=== PATIENT | male | born 1960 | race Caucasian/White ===

== ENCOUNTER 2016-10-16 18:27 | Emergency (ER) | payer OTHER ==
[~2016-10-16] VITALS: Ht 172.7 cm; Wt 113.6 kg
[~2016-10-16 18:27] MED LIST: AMOXICILLIN/CLA1 TA1 PO; CIPRO 500MG TA500 MG PO; IBU600 MG PO; LORTAB 5/500 501 TAB; LORTAB 5/500 501 TAB PO; MEDROL 4MG DOSPA4 MG PO; MOTRIN 600600 MG/TAB PO; NAPROSYN500 MG PO; NEURONTIN300 MG/CAP PO; NORCO 325 MG-51 TAB PO; NORCO 325 MG-7.1 TAB PO; PERCOCET 325 MG1 TA2 PO; PREDNISONE20 MG PO; PRINIVIL10 MG PO; ZITHROMAX 250M250 MG PO
[2016-10-16 18:29] VITALS: TEMP 97.5
[2016-10-16] MEDS ORDERED: PERCOCET 325 MG1 TA2 PO (19:38)
[2016-10-16] MEDS ORDERED: ZOFRAN ODT4 MG PO (19:38)
[2016-10-16 19:59] VITALS: BP 128/84; PULSE 68
== END 2016-10-16 19:59 | disposition home or self-care (01) ==
LOC: COL.ER 18:27
DX: S06.0X1A Concussion with loss of consciousness of 30 minutes or less, initial encounter (principal); S00.83XA Contusion of other part of head, initial encounter; W55.22XA Struck by cow, initial encounter; R40.2412 Glasgow coma scale score 13-15, at arrival to emergency department

== ENCOUNTER 2017-04-13 15:30 | Emergency (ER) | payer OTHER ==
[~2017-04-13] VITALS: Ht 172.7 cm; Wt 100.0 kg
[~2017-04-13 15:30] MED LIST changes: +ZOFRAN ODT4 MG PO
[2017-04-13 15:32] VITALS: BP 154/97; TEMP 97.8
[2017-04-13 17:33] LABS: BASO % 0.3 % (0.0-2.0); EOS # 0.3 (0.0-0.7); EOS % 4.3 % (0-4.0); GRAN # 3.1 (1.4-6.5); GRAN % 51.5 % (42.2-75.2); HEMATOCRIT 43.2 % (42.0-52.0); HEMOGLOBIN 15.1 g/dl (13.5-18.0); LYMPH # 1.9 (1.2-3.4); LYMPH % 31.5 % (20.0-51.0); MEAN CELL VOLUME 87 fl (80.0-100.0); MEAN CORPUSCULAR HEMOGLOBIN 30 pg (27.0-31.0); MEAN CORPUSCULAR HGB CONC 35 g/dl (33.0-37.0); MEAN PLATELET VOLUME 8.7 fl (7.4-10.4); MONO # 0.7 (0.1-0.6); MONO % 12.1 % (1.7-9.3); PLATELET COUNT 157 K/mm3 (130-400); RED BLOOD COUNT 4.99 M/mm3 (4.20-5.60); REDCELL DISTRIBUTION WIDTH-CV 12.6 % (11.5-14.5)
[2017-04-13 17:43] LABS: INR 0.9 (0.8-3.0); PROTHROMBIN TIME 9.9 SECONDS (9.7-12.8)
[2017-04-13 17:46] LABS: PARTIAL THROMBOPLASTIN TIME 28.2 SECONDS (26.0-37.0)
[2017-04-13 17:48] LABS: ADJUSTED CALCIUM 8.9 mg/dL (8.4-10.2); ALANINE AMINOTRANSFERASE 77 U/L (21-72); ALBUMIN 4.4 gm/dL (3.5-5.0); ALKALINE PHOSPHATASE 72 U/L (50-136); ANION GAP 10 mmol/L (7-16); BILIRUBIN,TOTAL 0.9 mg/dL (0.0-1.0); BLOOD UREA NITROGEN 9 mg/dL (9-20); CALCIUM 9.2 mg/dL (8.4-10.2); CARBON DIOXIDE 28 mmol/L (22-30); CHLORIDE 101 mmol/L (98-107); CREATININE, serum 0.78 mg/dL (0.66-1.25); GLUCOSE 81 mg/dL (74-106); POTASSIUM 4.2 mmol/L (3.4-5.0); SODIUM 139 mmol/L (137-145); TOTAL PROTEIN 7.2 gm/dL (6.4-8.2)
[2017-04-13 17:54] LABS: C-REACTIVE PROTEIN < 0.5 mg/dL (0.0-0.9)
[2017-04-13] MEDS ORDERED: NORCO 325 MG-7.1 TAB PO (18:35)
[2017-04-13 18:46] VITALS: PULSE 82
== END 2017-04-13 18:48 | disposition home or self-care (01) ==
LOC: COL.ER 15:30
PROVIDERS: Physician Assistant
DX: M79.644 Pain in right finger(s) (principal); I10 Essential (primary) hypertension; F17.210 Nicotine dependence, cigarettes, uncomplicated; F12.10 Cannabis abuse, uncomplicated; Z86.69 Personal history of other diseases of the nervous system and sense organs; Z98.890 Other specified postprocedural states; X58.XXXA Exposure to other specified factors, initial encounter

== ENCOUNTER 2018-04-20 08:30 | Outpatient (RCR) | payer OTHER | END 2018-06-21 | disposition home or self-care (01) | LOC: WSPT | DX: M54.2 Cervicalgia (principal); M54.6 Pain in thoracic spine; M25.519 Pain in unspecified shoulder ==

== ENCOUNTER 2019-01-09 00:24 | Emergency (ER) | payer OTHER ==
[~2019-01-09] VITALS: Ht 182.9 cm; Wt 113.6 kg
[2019-01-09 00:30] VITALS: TEMP 98.2
[2019-01-09 02:31] VITALS: BP 138/78; PULSE 88
== END 2019-01-09 02:32 | disposition home or self-care (01) ==
LOC: COL.ER 00:24
DX: K04.8 Radicular cyst (principal); F17.210 Nicotine dependence, cigarettes, uncomplicated

== ENCOUNTER 2019-06-02 03:10 | Emergency (ER) | payer SELFPAY ==
[~2019-06-02] VITALS: Ht 188 cm; Wt 113.6 kg
[2019-06-02 03:11] VITALS: BP 147/90; TEMP 98.8
[2019-06-02] MEDS ORDERED: CEPHALEXIN500 M1 PO (04:41)
[2019-06-02 05:11] VITALS: PULSE 88
== END 2019-06-02 05:11 | disposition home or self-care (01) ==
LOC: COL.ER 03:10
DX: S62.633B Displaced fracture of distal phalanx of left middle finger, initial encounter for open fracture (principal); S62.621A Displaced fracture of middle phalanx of left index finger, initial encounter for closed fracture; Z23 Encounter for immunization; W23.0XXA Caught, crushed, jammed, or pinched between moving objects, initial encounter; Y92.009 Unspecified place in unspecified non-institutional (private) residence as the place of occurrence of the external cause

== ENCOUNTER → 2019-06-12 | Outpatient (CLI) | payer OTHER, BC ==
[~2019-06-12] MED LIST changes: +CEPHALEXIN500 M1 PO
[2019-06-12 14:48] VITALS: BP 138/86; PULSE 86; TEMP 97.2
== END ==
LOC: COL.ER 14:44
DX: Z48.02 Encounter for removal of sutures (principal)

== ENCOUNTER 2020-01-12 12:31 | Emergency (ER) | payer SELFPAY ==
[~2020-01-12] VITALS: Ht 182.9 cm; Wt 113.6 kg
[2020-01-12 12:48] VITALS: BP 146/98; PULSE 66; TEMP 98.4
== END 2020-01-12 14:53 | disposition left against medical advice (07) ==
LOC: COL.ER 12:31
DX: R53.81 Other malaise (principal)

== ENCOUNTER 2020-11-18 18:47 | Emergency (ER) | payer SELFPAY ==
[~2020-11-18] VITALS: Ht 182.9 cm; Wt 113.6 kg
[2020-11-18 18:51] VITALS: BP 133/92; PULSE 91; TEMP 97.7
[2020-11-18] MEDS ORDERED: BACTROBAN 22GM22 GM NAS (19:23)
[2020-11-18] MEDS ORDERED: MOTRIN 400400 MG/TAB PO (19:23)
[2020-11-18] MEDS ORDERED: ROBAXIN 50500 MG/TAB PO (19:23)
== END 2020-11-18 21:57 | disposition home or self-care (01) ==
LOC: COL.ER 18:47
DX: S80.812A Abrasion, left lower leg, initial encounter (principal); M54.30 Sciatica, unspecified side; Z88.0 Allergy status to penicillin; Z91.041 Radiographic dye allergy status; X58.XXXA Exposure to other specified factors, initial encounter

== ENCOUNTER 2021-03-23 03:47 | Inpatient (IN) | payer OTHER ==
[~2021-03-23] VITALS: Ht 182.9 cm; Wt 102.2 kg
[2021-03-23] VITALS (8 sets, daily range): BP systolic 112–131; BP diastolic 71–92; PULSE 64–89; TEMP 98.2–99.4
[~2021-03-23 03:47] MED LIST changes: +BACTROBAN 22GM22 GM NAS; +MOTRIN 400400 MG/TAB PO; +ROBAXIN 50500 MG/TAB PO
[2021-03-23 04:24] LABS: EOS % 0.5 % (0-4.0); GRAN # 2.8 (1.4-6.5); GRAN % 72.7 % (42.2-75.2); HEMATOCRIT 44.1 % (42.0-52.0); HEMOGLOBIN 14.8 g/dl (13.5-18.0); LYMPH # 0.8 (1.2-3.4); LYMPH % 21.6 % (20.0-51.0); MEAN CELL VOLUME 90 fl (80.0-100.0); MEAN CORPUSCULAR HEMOGLOBIN 30 pg (27.0-31.0); MEAN CORPUSCULAR HGB CONC 34 g/dl (33.0-37.0); MEAN PLATELET VOLUME 10.1 fl (7.4-10.4); MONO # 0.2 (0.1-0.6); MONO % 4.7 % (1.7-9.3); PLATELET COUNT 72 K/mm3 (130-400); RED BLOOD COUNT 4.88 M/mm3 (4.20-5.60); REDCELL DISTRIBUTION WIDTH-CV 13.2 % (11.5-14.5)
[2021-03-23 04:41] LABS: BILIRUBIN,TOTAL 0.6 mg/dL (0.0-1.0); CALCIUM 7.5 mg/dL (8.4-10.2); CREATININE, serum 1.08 (0.66-1.25); POTASSIUM 4.2 mmol/L (3.4-5.0); TOTAL PROTEIN 6.7 gm/dL (6.4-8.2)
[2021-03-23 05:30] LABS: TROPONIN-I 0.013 ng/mL (0.000-0.035)
[2021-03-23 05:43] LABS: C-REACTIVE PROTEIN 0.6 mg/dL (0.0-0.9)
[2021-03-23 06:16] LABS: ARTERIAL BLD GAS TCO2 CT 28.1; ARTERIAL BLOOD GAS BASE EXCESS 0.8 (-2-2); ARTERIAL BLOOD GAS HCO3 26.6 meq/L (22-26); ARTERIAL BLOOD GAS PCO2 47.1 mmHg (35-45); ARTERIAL BLOOD GAS PO2 59.7 mmHg (80-100); ARTERIAL BLOOD GAS pH 7.37 (7.35-7.45)
--- NOTE | 2021-03-23 07:00 | NUR ---
Report received from FAMILIA Olivares. Will continue to monitor.
--- NOTE | 2021-03-23 07:49 | NUR ---
Initial Physical Assessment charted. Pt resting in bed, very tired, states he hasnt rested well in several nights. Had diarrhea this am. Coughing intermittently and will use sputum cup. Resting between disturbances. Lungs are coarse and wheezing. Pt smokes 1 PPD, states he is done with smoking. IV antibiotics to RFA. Pt feels cold, warm blanket provided. Will continue to monitor.
[2021-03-23 09:00] LABS: PROTHROMBIN TIME 11.1 SECONDS (9.7-12.8)
--- NOTE | 2021-03-23 15:18 | NUR ---
Call received from patient's daughter, update provided to her. She did share that pt is a heavy drinker and also abuses substances. Relayed information to Dr. Hernandez and orders received.
--- NOTE | 2021-03-23 15:38 | NUR ---
Sw tried to call pt 2 times to complete intake and no answer. Sw to try back later.
[2021-03-23 17:38] LABS: COLLECTION METHOD CLEAN CATCH
[2021-03-23 17:47] LABS: MUCOUS Present /lpf; PH 5 (5-8); SQUAMOUS EPITHELIAL None Seen /hpf; URINE APPEARANCE Clear; URINE BACTERIA None Seen /hpf; URINE BILIRUBIN Negative (NEGATIVE); URINE BLOOD Negative (NEGATIVE); URINE COLOR Yellow; URINE GLUCOSE 3+ (NEGATIVE); URINE KETONE Negative (NEGATIVE); URINE LEUKOCYTE ESTERASE Negative (NEGATIVE); URINE NITRATE Negative (NEGATIVE); URINE PROTEIN(semi-quant) 2+ (NEGATIVE); URINE RBC None Seen /hpf; URINE UROBILINOGEN Negative (NEGATIVE); URINE WBC 0-2 /hpf
[2021-03-23 18:22] LABS: TRICYCLIC ANTIDEPRESS URINE NEGATIVE
--- NOTE | 2021-03-23 18:29 | NUR ---
Pt called out states he is having upset stomach. Resting in bed, denies other needs. Will continue to montior.
[2021-03-24] VITALS (360 sets, daily range): BP systolic 111–131; BP diastolic 62–89; PULSE 58–80; TEMP 97.1–98.6; O2SAT 86–100
--- NOTE | 2021-03-24 05:08 | NUR ---
Resting comfortably, no c/o pain, wakes easily for medications, oriented x 3, verbal with clear speech, Air Vo @ 60L 80%FIO2, telemetry in use, CIWA protocol in use, will continue to monitor.
[2021-03-24 05:19] LABS: ARTERIAL BLD GAS O2 SATURATION 92.1 % (92-100); ARTERIAL BLD GAS TCO2 CT 30.4; ARTERIAL BLOOD GAS BASE EXCESS 3.5 (-2-2); ARTERIAL BLOOD GAS HCO3 28.9 meq/L (22-26); ARTERIAL BLOOD GAS pH 7.41 (7.35-7.45)
--- NOTE | 2021-03-24 07:00 | NUR ---
Report received from FAMILIA Benson. PT in bed resting, will continue to monitor.
--- NOTE | 2021-03-24 07:42 | NUR ---
INCREASED TO 94% FIO2 60L 90% RN NOTIFIED
[2021-03-24 08:26] LABS: EOS % 0.2 % (0-4.0); GRAN # 3.6 (1.4-6.5); GRAN % 71.8 % (42.2-75.2); HEMATOCRIT 40.9 % (42.0-52.0); HEMOGLOBIN 13.6 g/dl (13.5-18.0); LYMPH # 1.1 (1.2-3.4); LYMPH % 21.6 % (20.0-51.0); MEAN CELL VOLUME 92 fl (80.0-100.0); MEAN CORPUSCULAR HEMOGLOBIN 31 pg (27.0-31.0); MEAN CORPUSCULAR HGB CONC 33 g/dl (33.0-37.0); MEAN PLATELET VOLUME 10.1 fl (7.4-10.4); MONO # 0.3 (0.1-0.6); MONO % 5.8 % (1.7-9.3); PLATELET COUNT 83 K/mm3 (130-400); RED BLOOD COUNT 4.43 M/mm3 (4.20-5.60); REDCELL DISTRIBUTION WIDTH-CV 13.5 % (11.5-14.5)
[2021-03-24 08:30] LABS: ALBUMIN 3.5 gm/dL (3.5-5.0); BILIRUBIN,TOTAL 0.3 mg/dL (0.0-1.0); C-REACTIVE PROTEIN 0.6 mg/dL (0.0-0.9); CALCIUM 7.4 mg/dL (8.4-10.2); CREATININE, serum 0.96 (0.66-1.25); POTASSIUM 4.3 mmol/L (3.4-5.0)
--- NOTE | 2021-03-24 09:55 | NUR ---
PLACED PT ON BIPAP 18/8 FIO2 80% RR 14 SPO2 93% VT 1249 RR 19 HR 75 RN NOTIFIED
--- NOTE | 2021-03-24 10:30 | NUR ---
Assessment charted. PT in bed resting, states he feels like he can't breath as well today, lungs are coarse and wheezing throughout. Poell to see pt and states he wants to transfer. PT has coarse cough with brown sputum. AIRVO maxed out, Radha will put on bipap.
--- NOTE | 2021-03-24 12:20 | NUR ---
RECEIVED PATIENT FROMMEDICAL FLOOR. PATIENT IS ON BIPAP 80% WITH LEFT ANTICUBITAL IV IN, SALINE LOCKED. PATIENT IS PALE AND DUSKY LOOKING AND ANXIOUS. VITAL SIGNS ARE STABLE. INFORMED BY ICU RESPIRATORY THERAPIST OF DECREASED O2 NEEDS AND WENT FROM 80% TO 70%. HOOKED UP TO ALL MONITORS AND ASSESSED. LUNGS ARE CLEAR AND DIMINISHED. NO EDEMA AND NO SKIN ISSUES. TOOK MRSA SWAB. RECEIVED BEDSIDE SHIFT REPORT FROM FAMILIA MORALES.
--- NOTE | 2021-03-24 13:12 | NUR ---
Pt transferred down to ICU via bed with clean staff, RT and myself. Pt resting in bed, transferred over to new bed, pt able to assist. On BIPAP with assistance. Report given to FAMILIA Wolf in ICU who will resume care.
--- NOTE | 2021-03-24 13:18 | NUR ---
Called and updated on pt transfer
--- NOTE | 2021-03-24 21:25 | NUR ---
Assessment complete and charted. Denies needs at this time. Call light in reach.
[2021-03-25] VITALS (1160 sets, daily range): BP systolic 112–147; BP diastolic 71–97; PULSE 57–83; TEMP 97.5–98; O2SAT 82–100
--- NOTE | 2021-03-25 07:00 | NUR ---
RECEIVED REPORT FROM FAMILIA OROPEZA. PT SLEEPING ON BIPAP. VSS. URINAL AND CALL LIGHT WITHIN REACH.
--- NOTE | 2021-03-25 07:15 | NUR ---
Report given to Benito BARBOSA
[2021-03-25 08:42] LABS: BASO % 0.2 % (0.0-2.0); EOS % 0.2 % (0-4.0); GRAN # 3.5 (1.4-6.5); GRAN % 67.4 % (42.2-75.2); HEMATOCRIT 39.9 % (42.0-52.0); HEMOGLOBIN 13.1 g/dl (13.5-18.0); LYMPH # 1.3 (1.2-3.4); LYMPH % 24.5 % (20.0-51.0); MEAN CELL VOLUME 92 fl (80.0-100.0); MEAN CORPUSCULAR HEMOGLOBIN 30 pg (27.0-31.0); MEAN CORPUSCULAR HGB CONC 33 g/dl (33.0-37.0); MEAN PLATELET VOLUME 9.7 fl (7.4-10.4); MONO # 0.4 (0.1-0.6); MONO % 6.7 % (1.7-9.3); PLATELET COUNT 109 K/mm3 (130-400); RED BLOOD COUNT 4.36 M/mm3 (4.20-5.60); REDCELL DISTRIBUTION WIDTH-CV 13.4 % (11.5-14.5)
[2021-03-25 08:52] LABS: CREATININE, serum 1.01 (0.66-1.25); MAGNESIUM 1.8 mg/dL (1.6-2.3); POTASSIUM 4.4 mmol/L (3.4-5.0)
[2021-03-25 10:01] LABS: ARTERIAL BLD GAS O2 SATURATION 95.9 % (92-100); ARTERIAL BLD GAS TCO2 CT 27.3; ARTERIAL BLOOD GAS BASE EXCESS 1.6 (-2-2); ARTERIAL BLOOD GAS HCO3 26.1 meq/L (22-26); ARTERIAL BLOOD GAS PCO2 40.6 mmHg (35-45); ARTERIAL BLOOD GAS PO2 78.5 mmHg (80-100); ARTERIAL BLOOD GAS pH 7.43 (7.35-7.45)
--- NOTE | 2021-03-25 19:43 | NUR ---
Shift report given to FAMILIA Auguste.
[2021-03-26] VITALS (593 sets, daily range): BP systolic 120–151; BP diastolic 71–93; PULSE 51–85; TEMP 97.8–99; O2SAT 80–100
[2021-03-26 04:50] LABS: BASO % 0.2 % (0.0-2.0); EOS % 0.2 % (0-4.0); GRAN # 4.4 (1.4-6.5); GRAN % 72.8 % (42.2-75.2); HEMATOCRIT 38.4 % (42.0-52.0); HEMOGLOBIN 12.8 g/dl (13.5-18.0); LYMPH # 1.1 (1.2-3.4); LYMPH % 18.3 % (20.0-51.0); MEAN CELL VOLUME 90 fl (80.0-100.0); MEAN CORPUSCULAR HEMOGLOBIN 30 pg (27.0-31.0); MEAN CORPUSCULAR HGB CONC 33 g/dl (33.0-37.0); MEAN PLATELET VOLUME 10.4 fl (7.4-10.4); MONO # 0.4 (0.1-0.6); MONO % 7.2 % (1.7-9.3); PLATELET COUNT 123 K/mm3 (130-400); RED BLOOD COUNT 4.27 M/mm3 (4.20-5.60); REDCELL DISTRIBUTION WIDTH-CV 13.2 % (11.5-14.5)
[2021-03-26 04:52] LABS: ARTERIAL BLD GAS O2 SATURATION 97.6 % (92-100); ARTERIAL BLOOD GAS BASE EXCESS 3.4 (-2-2); ARTERIAL BLOOD GAS HCO3 28.6 meq/L (22-26); ARTERIAL BLOOD GAS PCO2 45.9 mmHg (35-45); ARTERIAL BLOOD GAS pH 7.41 (7.35-7.45)
[2021-03-26 04:59] LABS: CALCIUM 8.5 mg/dL (8.4-10.2); CREATININE, serum 0.95 (0.66-1.25)
--- NOTE | 2021-03-26 07:00 | NUR ---
RECEIVED REPORT FROM FAMILIA CORCORAN. PT RESTING IN BED ON AIRVO. VSS. CALL LIGHT AND URINAL WITHIN REACH.
--- NOTE | 2021-03-26 15:55 | NUR ---
REPORT CALLED TO FAMILIA BARTH. PT TRANSFERRED VIA WC ON 10L OM TO 307. ALL PERSONAL BELONGINGS SENT WITH PT. RT FOLLOWING TO PLACE PT BACK ON AIRVO UPSTAIRS. FAMILIA BARTH NOTIFIED OF PT'S ARRIVAL TO ROOM. CALL LIGHT AND URINAL WITHIN REACH.
--- NOTE | 2021-03-26 16:25 | NUR ---
Patient to room 307 by wheelchair from the ICU. Patient laying in bed with Airvo. A&Ox3. No complaints of SOB, just wanting to take a shower. Denies pain and discomfort. IV CDI. Nurse oriented the patient to location, room and call light. Patient placed the patient on a NC on 15L O2 and assisted with a shower. Patient ambulated back to the bed independently and airvo placed back on the patient. Patient positioned for comfort. No further needs expressed. Call light within reach. Droplet/contact precautions in place
--- NOTE | 2021-03-26 18:12 | NUR ---
Patient resting in bed, states that he is just tired. Nurse assisted with a shower and the patient tolerated well, says he feels better. Denies pain and discomfort. IV CDI. No further needs expressed from the patient. Call light within reach. Droplet/contact precautions in place.
[2021-03-27 03:24] VITALS: BP 120/68; PULSE 68; TEMP 98.3
[2021-03-27 08:34] LABS: BASO % 0.2 % (0.0-2.0); EOS # 0.1 (0.0-0.7); EOS % 0.8 % (0-4.0); GRAN # 4.5 (1.4-6.5); HEMATOCRIT 40.5 % (42.0-52.0); HEMOGLOBIN 13.4 g/dl (13.5-18.0); LYMPH # 1.4 (1.2-3.4); LYMPH % 20.5 % (20.0-51.0); MEAN CELL VOLUME 91 fl (80.0-100.0); MEAN CORPUSCULAR HEMOGLOBIN 30 pg (27.0-31.0); MEAN CORPUSCULAR HGB CONC 33 g/dl (33.0-37.0); MEAN PLATELET VOLUME 9.9 fl (7.4-10.4); MONO # 0.6 (0.1-0.6); MONO % 9.1 % (1.7-9.3); PLATELET COUNT 132 K/mm3 (130-400); RED BLOOD COUNT 4.44 M/mm3 (4.20-5.60); REDCELL DISTRIBUTION WIDTH-CV 13.2 % (11.5-14.5)
[2021-03-27 08:47] LABS: ALBUMIN 3.5 gm/dL (3.5-5.0); BILIRUBIN,TOTAL 0.4 mg/dL (0.0-1.0); C-REACTIVE PROTEIN 0.6 mg/dL (0.0-0.9); CALCIUM 8.6 mg/dL (8.4-10.2); CREATININE, serum 1.01 (0.66-1.25); POTASSIUM 4.7 mmol/L (3.4-5.0)
[2021-03-27 08:52] VITALS: BP 114/74; PULSE 77; TEMP 98
[2021-03-27 12:39] VITALS: BP 124/77; PULSE 84; TEMP 97.9
[2021-03-27 16:00] VITALS: BP 118/71; PULSE 79; TEMP 98.1
[2021-03-27 19:56] VITALS: BP 125/69; PULSE 70; TEMP 99.1
[2021-03-28 01:09] VITALS: BP 126/77; PULSE 67; TEMP 98.5
[2021-03-28 04:09] VITALS: BP 124/85; PULSE 66; TEMP 98.5
[2021-03-28 04:24] LABS: ARTERIAL BLD GAS TCO2 CT 28.6; ARTERIAL BLOOD GAS BASE EXCESS 2.5 (-2-2); ARTERIAL BLOOD GAS HCO3 27.3 meq/L (22-26); ARTERIAL BLOOD GAS PCO2 42.7 mmHg (35-45); ARTERIAL BLOOD GAS PO2 85.4 mmHg (80-100); ARTERIAL BLOOD GAS pH 7.42 (7.35-7.45)
[2021-03-28 08:37] VITALS: BP 108/73; PULSE 85; TEMP 98.4
[2021-03-28 12:42] VITALS: BP 114/74; PULSE 75; TEMP 98.8
[2021-03-28 16:00] VITALS: BP 134/77; PULSE 80; TEMP 98.3
--- NOTE | 2021-03-28 16:00 | NUR ---
Unable to reach patient on room phone. Call made to his Sabrina. States Emil is fully independent and uses no equipment to assist with ambulation. PCP is Dr. De Leon and uses [id number] when needed. Patient is uninsured. Has applied for medicaid in the past and was denied. Sabrina reports that Kristina Shultz contacted her this past Wednesday and is mailing out a new application to try and reapply. reports that they do not have a DPOA-HC established and doesn't know if he will want one or not. *Discharge plan: Home*
[2021-03-28 20:52] VITALS: BP 124/75; PULSE 81; TEMP 99.1
--- NOTE | 2021-03-28 22:35 | NUR ---
Awake, alert, oriented x 4, talkative, Air Vo in use @50L O2, encouraged hot liquids, proning, incentive spirometer use, Call woods w/i reach, PICC to R upper arm with dressing c/d/i, telemetry in use, call woods w/i reach, denies pain, will continue to monitor.
[2021-03-29] VITALS (7 sets, daily range): BP systolic 113–143; BP diastolic 67–87; PULSE 80–88; TEMP 97.9–98.8
[2021-03-29 06:57] LABS: HEMATOCRIT 39.2 % (42.0-52.0); HEMOGLOBIN 12.8 g/dl (13.5-18.0); MEAN CELL VOLUME 92 fl (80.0-100.0); MEAN CORPUSCULAR HEMOGLOBIN 30 pg (27.0-31.0); MEAN CORPUSCULAR HGB CONC 33 g/dl (33.0-37.0); MEAN PLATELET VOLUME 10.1 fl (7.4-10.4); PLATELET COUNT 131 K/mm3 (130-400); RED BLOOD COUNT 4.27 M/mm3 (4.20-5.60); REDCELL DISTRIBUTION WIDTH-CV 13.2 % (11.5-14.5)
[2021-03-29 07:10] LABS: ALBUMIN 3.5 gm/dL (3.5-5.0); BILIRUBIN,TOTAL 0.5 mg/dL (0.0-1.0); CALCIUM 8.5 mg/dL (8.4-10.2); CREATININE, serum 0.83 (0.66-1.25); POTASSIUM 4.6 mmol/L (3.4-5.0); TOTAL PROTEIN 5.9 gm/dL (6.4-8.2)
--- NOTE | 2021-03-29 22:46 | NUR ---
Patient assessed around 2009. Alert and oriented. Denies pain and discomfort. PICC to RUE. Reports SOB and dyspnea with exertion only. Respirations even and unlabored at rest. LS coarse crackles upper lobes, diminished lower. On Airvo at 40L 45%. Frequent cough with clear thin sputum production. HRR. Telemetry in place. Capillary refill less than 3 seconds. Non-tenting skin turgor. BSAx4. Abdomen soft and non-tender. No edema. Voices no questions, needs, or concerns at this time. Resting in bed with call light within reach.
[2021-03-30 05:35] VITALS: BP 108/65; PULSE 84; TEMP 99.2
--- NOTE | 2021-03-30 05:57 | NUR ---
Patient has been resting in bed with call light within reach. Continues on Airvo at 40L 45%. Voices no questions, needs, or concerns at this time. Resting in bed with call light within reach.
[2021-03-30 08:30] VITALS: BP 118/76; PULSE 78; TEMP 98.6
[2021-03-30 11:15] VITALS: BP 108/74; PULSE 91; TEMP 99.3
[2021-03-30 16:30] VITALS: BP 134/79; PULSE 98; TEMP 98.1
[2021-03-30 20:00] VITALS: BP 141/71; PULSE 70; TEMP 98
--- NOTE | 2021-03-30 23:16 | NUR ---
ALERT AND OX3. DENIES SOA,CHEST PAIN OR DIZZY. PICC TO RT UPPER ARM FLUSHED W GOOD BLOOD RETURN. PM MEDS GIVEN. POC DISCUSSED. CALL LIGHT WI REACH. NEEDS MET.
[2021-03-31 00:31] VITALS: BP 140/81; PULSE 69; TEMP 98.1
--- NOTE | 2021-03-31 06:09 | NUR ---
rested through the night without incident. needs met.
[2021-03-31 09:06] VITALS: BP 117/82; PULSE 72; TEMP 98.9
[2021-03-31 12:07] VITALS: BP 121/71; PULSE 64; TEMP 99
[2021-03-31 17:26] VITALS: BP 133/78; PULSE 86; TEMP 98.7
[2021-03-31 19:41] VITALS: BP 148/82; PULSE 88; TEMP 98.4
--- NOTE | 2021-03-31 23:58 | NUR ---
ALERT OX3. DENIES CHEST PAIN, LIGHTHEAD OR DIZZY. NO N/V. FAIR APPEITE. PM MEDS GIVEN. PICC TO RT UPPER ARM FLUSHED W GOD BLOOD RETURN. PM MEDS GIVEN.10L O2 HF. SOME SOA W EXCERTION CONT. PT IS UPSET AND REQ TO GIVE NO FAMILY MEMBERS INFO IF CALLING HE IS HAVING PERSONAL ISSUES W THEM. ASSURE NO INFO WOULD BE GIVEN IT VIOLATES HIPPA. CALL LIGHT WI REACH. NEEDS MET.
[2021-04-01 01:09] VITALS: BP 136/80; PULSE 83; TEMP 98.8
[2021-04-01 03:25] VITALS: BP 134/74; PULSE 72; TEMP 98.6
--- NOTE | 2021-04-01 05:48 | NUR ---
Rested through the night without incident. Needs met.
[2021-04-01 07:49] LABS: BASO % 0.1 % (0.0-2.0); EOS # 0.1 (0.0-0.7); EOS % 0.9 % (0-4.0); GRAN # 5.5 (1.4-6.5); HEMOGLOBIN 13.1 g/dl (13.5-18.0); LYMPH # 1.1 (1.2-3.4); MEAN CELL VOLUME 91 fl (80.0-100.0); MEAN CORPUSCULAR HEMOGLOBIN 31 pg (27.0-31.0); MEAN CORPUSCULAR HGB CONC 34 g/dl (33.0-37.0); MONO # 0.8 (0.1-0.6); MONO % 10.5 % (1.7-9.3); PLATELET COUNT 142 K/mm3 (130-400); RED BLOOD COUNT 4.29 M/mm3 (4.20-5.60); REDCELL DISTRIBUTION WIDTH-CV 13.1 % (11.5-14.5)
[2021-04-01 08:03] LABS: CALCIUM 8.6 mg/dL (8.4-10.2); CREATININE, serum 0.91 (0.66-1.25); POTASSIUM 4.2 mmol/L (3.4-5.0)
[2021-04-01 08:16] VITALS: BP 126/85; PULSE 73; TEMP 98.7
--- NOTE | 2021-04-01 11:00 | NUR ---
Patient is doing well this morning. He has been independent in the room. Denies pain and nausea. Offered to cover his PICC line for a shower, he said maybe after supper. He stated he does not want his family to have any info about him over the phone, including his . He stated they are driving him crazy and he does not want to talk to his family anymore. His is upset about not getting information over the phone. Patient wants to leave, explained his oxygen demands are too high and that he will not do well when he leaves if he's not on oxygen. He stated he still get short of breath walking to bathroom. No other changes at this time. Call light within reach.
[2021-04-01 12:05] VITALS: BP 115/67; PULSE 88; TEMP 98
--- NOTE | 2021-04-01 12:32 | NUR ---
There was a mix up in report and it was reported that patient was a diabetic. The TECHNICAL MGR checked patients glucose and it is 325. Notified Dr Greco. Patients glucose has been 90's to low 100's. Did not give orders to treat at this time, just recheck again before dinner. Patient did get decadron this am. No other changes at this time. Call light within reach.
[2021-04-01 16:59] VITALS: BP 133/77; PULSE 93; TEMP 98.2
--- NOTE | 2021-04-01 18:29 | NUR ---
Patients glucose was 285 with the recheck. Spoke with Dr Greco and he started patient on moderate dose sliding scale. When discussing with patient about starting him on the sliding scale insulin because his blood sugars are so high, he stated he was put on medication before but they stopped it. No other changes at this time. Call light within reach.
[2021-04-01 20:00] VITALS: BP 137/78; PULSE 94; TEMP 98.2
[2021-04-02 00:27] VITALS: BP 131/82; PULSE 82; TEMP 99.1
--- NOTE | 2021-04-02 04:37 | NUR ---
02 WEANED TO 5L, THIS NURSE REVIEWED IMPORTANCE OF POSITIONING AND O2 WEANING. PT VERBALIZES UNDERSTANDING. PT HAD UNEVENTFUL NIGHT. NEEDS MET.
[2021-04-02 05:12] VITALS: BP 140/86; PULSE 85; TEMP 98.7
[2021-04-02 07:21] LABS: BASO % 0.1 % (0.0-2.0); EOS % 0.2 % (0-4.0); GRAN # 6.8 (1.4-6.5); HEMOGLOBIN 12.7 g/dl (13.5-18.0); LYMPH # 1.2 (1.2-3.4); LYMPH % 12.9 % (20.0-51.0); MEAN CELL VOLUME 90 fl (80.0-100.0); MEAN CORPUSCULAR HEMOGLOBIN 31 pg (27.0-31.0); MEAN CORPUSCULAR HGB CONC 34 g/dl (33.0-37.0); MEAN PLATELET VOLUME 9.9 fl (7.4-10.4); MONO # 0.9 (0.1-0.6); PLATELET COUNT 134 K/mm3 (130-400); RED BLOOD COUNT 4.12 M/mm3 (4.20-5.60)
[2021-04-02 07:24] LABS: HEMATOCRIT 36.9 % (42.0-52.0)
[2021-04-02 07:42] LABS: CALCIUM 8.9 mg/dL (8.4-10.2); CREATININE, serum 0.85 (0.66-1.25); POTASSIUM 4.5 mmol/L (3.4-5.0)
[2021-04-02 08:32] VITALS: BP 131/82; PULSE 77; TEMP 97.3
[2021-04-02 12:51] VITALS: BP 142/87; PULSE 76; TEMP 96.9
[2021-04-02 17:21] VITALS: BP 135/86; PULSE 98; TEMP 98.8
--- NOTE | 2021-04-02 18:58 | NUR ---
Patient has done well today. Only complaint was a mild sore throat from dryness. Encouraged fluids and use of nasal spray.
[2021-04-02 20:00] VITALS: BP 138/91; PULSE 79; TEMP 98.4
[2021-04-03 00:03] VITALS: BP 149/90; PULSE 94; TEMP 97.9
[2021-04-03 04:23] VITALS: BP 148/91; PULSE 97; TEMP 98.2
--- NOTE | 2021-04-03 04:43 | NUR ---
PT HAD UNEVENTFUL NIGHT. 02 WEANED TO 2L. PT EXPRESSES NO ADDITIONAL NEEDS AT THIS TIME. CALL LIGHT WITHIN REACH.
[2021-04-03 07:19] LABS: BASO % 0.1 % (0.0-2.0); EOS % 0.1 % (0-4.0); GRAN # 6.4 (1.4-6.5); GRAN % 77.2 % (42.2-75.2); HEMOGLOBIN 12.8 g/dl (13.5-18.0); LYMPH % 12.1 % (20.0-51.0); MEAN CORPUSCULAR HEMOGLOBIN 31 pg (27.0-31.0); MEAN CORPUSCULAR HGB CONC 33 g/dl (33.0-37.0); MEAN PLATELET VOLUME 9.9 fl (7.4-10.4); MONO # 0.8 (0.1-0.6); MONO % 9.4 % (1.7-9.3); PLATELET COUNT 133 K/mm3 (130-400); RED BLOOD COUNT 4.11 M/mm3 (4.20-5.60); REDCELL DISTRIBUTION WIDTH-CV 13.1 % (11.5-14.5)
[2021-04-03 07:23] LABS: CALCIUM 8.8 mg/dL (8.4-10.2); CREATININE, serum 0.92 (0.66-1.25); POTASSIUM 4.4 mmol/L (3.4-5.0)
[2021-04-03 07:39] LABS: MEAN CELL VOLUME 95 fl (80.0-100.0)
[2021-04-03 09:33] VITALS: BP 138/90; PULSE 86; TEMP 98.5
[2021-04-03 12:51] VITALS: BP 139/77; PULSE 86; TEMP 99.2
[2021-04-03 16:00] VITALS: BP 130/81; PULSE 81; TEMP 98.4
--- NOTE | 2021-04-03 18:05 | NUR ---
Patient has done well today. No complaints, would like a shower tomorrow. This RN will pass this information on.
[2021-04-03 20:00] VITALS: BP 123/70; PULSE 88; TEMP 98.3
--- NOTE | 2021-04-03 23:25 | NUR ---
ALERT AND OX4. DENIES SOA, CHEST PAIN OR DIZZY. PM MEDS GIVEN. RT UPER ARM PICC FLUSHED W GOOD BLOOD RETURN. WATCHING TV . POC DISCUSSED. CALL LIGHT WI REACH. NEEDS MET.
[2021-04-04 00:30] VITALS: BP 130/77; PULSE 79; TEMP 98.3
[2021-04-04 05:09] VITALS: BP 136/82; PULSE 86; TEMP 97.9
--- NOTE | 2021-04-04 05:51 | NUR ---
RESTED THROUGH THE NIGHT WITHOUT INCIDENT. NEEDS MET.
[2021-04-04 07:51] LABS: CALCIUM 8.6 mg/dL (8.4-10.2); CREATININE, serum 0.99 (0.66-1.25); POTASSIUM 4.4 mmol/L (3.4-5.0)
[2021-04-04 08:15] LABS: BASO % 0.1 % (0.0-2.0); EOS % 0.1 % (0-4.0); GRAN # 6.6 (1.4-6.5); HEMATOCRIT 40.3 % (42.0-52.0); HEMOGLOBIN 13.3 g/dl (13.5-18.0); LYMPH # 1.4 (1.2-3.4); LYMPH % 15.7 % (20.0-51.0); MEAN CELL VOLUME 92 fl (80.0-100.0); MEAN CORPUSCULAR HEMOGLOBIN 30 pg (27.0-31.0); MEAN CORPUSCULAR HGB CONC 33 g/dl (33.0-37.0); MEAN PLATELET VOLUME 9.5 fl (7.4-10.4); MONO # 0.8 (0.1-0.6); MONO % 8.9 % (1.7-9.3); PLATELET COUNT 145 K/mm3 (130-400); RED BLOOD COUNT 4.39 M/mm3 (4.20-5.60)
[2021-04-04 08:48] VITALS: BP 125/79; PULSE 74; TEMP 98
--- NOTE | 2021-04-04 09:18 | NUR ---
Pt awake upon entry to room, no C/O pain at this time. Shift assessment complete, left Pt call light in reach, bed in lowest position.
[2021-04-04] MEDS ORDERED: INCRUSE EL62.5 MCG/A IH (09:37)
[2021-04-04] MEDS ORDERED: PROAIR HFA0.09 MG/AC IH (09:39)
--- NOTE | 2021-04-04 11:49 | NUR ---
The hospitalist is ready to d/c the patient today. An exercise ox was done. RT notified SW that the patient qualified for 2 liters of oxygen. The patient is self pay. SW contacted and updated the patient's , Sabrina. Sabrina was agreeable to getting the oxygen from [facility], due to the patient being self pay. Sabrina reports that she does not get off of work until 1700. SW contacted and faxed and emailed the oxygen order to Alison at [facility]. Awaiting delivery of oxygen.
[2021-04-04 13:46] VITALS: BP 128/81; PULSE 70; TEMP 98
--- NOTE | 2021-04-04 15:46 | NUR ---
[facility] delivered the portable oxygen to the patient's room. No additional needs at this time.
--- NOTE | 2021-04-04 18:12 | NUR ---
Pt discharged to home, discussed discharge instructions with Pt, answered questions. Educated Pt on O2 concentrator use. Escorted Pt to entrance, Pt left in own vehicle.
== END 2021-04-04 18:00 | disposition home or self-care (01) | DRG 177 ==
LOC: COL.ER 03:47 → MEDICAL 05:00 → ICU 05:00 → MEDICAL 23:00 → ICU 03-24 13:36 → MEDICAL 03-26 16:33
PROVIDERS: Internal Medicine; Internal Medicine Pulmonary Disease; Internal Medicine Sleep Medicine; Personal Emergency Response Attendant; Student in an Organized Health Care Education/Training Program; ADMIT Internal Medicine
PROC: 02HV33Z Insertion of Infusion Device into Superior Vena Cava, Percutaneous Approach (ICD-10-PCS; 2021-03-24)
PROC: 5A09457 Assistance with Respiratory Ventilation, 24-96 Consecutive Hours, Continuous Positive Airway Pressure (ICD-10-PCS; 2021-03-24)
PROC: XW033E5 Introduction of Remdesivir Anti-infective into Peripheral Vein, Percutaneous Approach, New Technology Group 5 (ICD-10-PCS; principal; 2021-03-26)
DX: U07.1 COVID-19 (principal); J12.82 Pneumonia due to coronavirus disease 2019; J96.01 Acute respiratory failure with hypoxia; A08.39 Other viral enteritis; F17.210 Nicotine dependence, cigarettes, uncomplicated; I10 Essential (primary) hypertension; D69.6 Thrombocytopenia, unspecified; R74.01 Elevation of levels of liver transaminase levels; F10.10 Alcohol abuse, uncomplicated
CPT/HCPCS: 99223-AI; 99231-AI; 99232-AI; 99233-AI; 99239; A9284; C1751; J0456; J0696; J1100; J1650; J1815; J2060; J2405; J2930; J3475; J7030; J7050; J8540; Q0249

== ENCOUNTER 2022-01-08 03:43 | Emergency (ER) | payer OTHER ==
[~2022-01-08] VITALS: Ht 182.9 cm; Wt 127.3 kg
[~2022-01-08 03:43] MED LIST changes: +INCRUSE EL62.5 MCG/A IH; +PROAIR HFA0.09 MG/AC IH
[2022-01-08 03:48] VITALS: TEMP 98.6
[2022-01-08 05:04] LABS: BASO % 0.2 % (0.0-2.0); EOS # 0.1 K/mm3 (0.0-0.7); EOS % 2.4 % (0.0-4.0); GRAN # 2.6 K/mm3 (1.4-6.5); GRAN % 56.7 % (42.2-75.2); HEMATOCRIT 40.9 % (42.0-52.0); HEMOGLOBIN 13.8 g/dl (13.5-18.0); LYMPH # 1.4 K/mm3 (1.2-3.4); LYMPH % 29.9 % (20.0-51.0); MEAN CELL VOLUME 88 fl (80.0-100.0); MEAN CORPUSCULAR HEMOGLOBIN 30 pg (27-31); MEAN CORPUSCULAR HGB CONC 34 g/dl (33.0-37.0); MEAN PLATELET VOLUME 8.9 fl (7.4-10.4); MONO # 0.5 K/mm3 (0.1-0.6); MONO % 10.6 % (1.7-9.3); PLATELET COUNT 103 K/mm3 (130-400); RED BLOOD COUNT 4.63 M/mm3 (4.20-5.60); REDCELL DISTRIBUTION WIDTH-CV 12.7 % (11.5-14.5)
[2022-01-08 05:18] LABS: ALANINE AMINOTRANSFERASE 83 U/L (0-55); ALKALINE PHOSPHATASE 77 U/L (40-150); ANION GAP 13 mmol/L (7-16); AST,SGOT 74 U/L (5-34); BILIRUBIN,TOTAL 1.2 mg/dL (0.2-1.2); BLOOD UREA NITROGEN 19 mg/dL (8-26); CALCIUM 8.6 mg/dL (8.4-10.2); CARBON DIOXIDE 26 mmol/L (23-31); CHLORIDE 101 mmol/L (98-107); CREATININE, serum 1.39 mg/dL (0.72-1.25); GLUCOSE 170 mg/dL (70-99); POTASSIUM 3.5 mmol/L (3.5-4.5); SODIUM 140 mmol/L (136-145); TOTAL PROTEIN 6.7 gm/dL (6.2-8.1)
[2022-01-08 05:21] LABS: ACETAMINOPHEN < 1.0 ug/mL (10-30); ALCOHOL(ethanol),MEDICAL < 10 mg/dL (0-10); SALICYLATE < 5.0 mg/dL (15.0-30.0)
[2022-01-08 05:38] LABS: TSH w REFLEX 2.193 uIU/mL (0.350-4.940)
[2022-01-08 05:40] LABS: COLLECTION METHOD CLEAN CATCH
[2022-01-08 05:55] LABS: MUCOUS Present (NOT PRESENT); PH 5 (5-8); SQUAMOUS EPITHELIAL 0-2 /hpf (0-10); URINE APPEARANCE Clear (CLEAR/HAZY); URINE BACTERIA None Seen /hpf (NONE SEEN); URINE BILIRUBIN Negative (NEGATIVE); URINE BLOOD Negative (NEGATIVE); URINE COLOR Yellow (YELLOW); URINE GLUCOSE 1+ (NEGATIVE); URINE KETONE Negative (NEGATIVE); URINE LEUKOCYTE ESTERASE Negative (NEGATIVE); URINE NITRATE Negative (NEGATIVE); URINE PROTEIN(semi-quant) Negative (NEGATIVE); URINE RBC 0-2 /hpf (0-2)
[2022-01-08 05:56] LABS: TRICYCLIC ANTIDEPRESS URINE NEGATIVE
[2022-01-08 09:20] VITALS: BP 105/68; PULSE 82
== END 2022-01-08 09:20 | disposition home or self-care (01) ==
LOC: COL.ER 03:43
PROVIDERS: Emergency Medicine
DX: F15.10 Other stimulant abuse, uncomplicated (principal); F22 Delusional disorders; R05.9 Cough, unspecified; Z20.822 Contact with and (suspected) exposure to COVID-19

== ENCOUNTER 2022-01-31 00:10 | Inpatient (IN) | payer MEDICAID ==
[~2022-01-31] VITALS: Ht 182.9 cm; Wt 104.9 kg
[2022-01-31 01:24] LABS: HEMATOCRIT 39.3 % (42.0-52.0); HEMOGLOBIN 13.4 g/dl (13.5-18.0); MEAN CELL VOLUME 89 fl (80.0-100.0); MEAN CORPUSCULAR HEMOGLOBIN 30 pg (27-31); MEAN CORPUSCULAR HGB CONC 34 g/dl (33.0-37.0); MEAN PLATELET VOLUME 9.2 fl (7.4-10.4); PLATELET COUNT 88 K/mm3 (130-400); RED BLOOD COUNT 4.43 M/mm3 (4.20-5.60); REDCELL DISTRIBUTION WIDTH-CV 12.9 % (11.5-14.5)
[2022-01-31 01:34] LABS: TRICYCLIC ANTIDEPRESS URINE NEGATIVE
[2022-01-31 01:36] LABS: ALBUMIN 3.7 gm/dL (3.4-4.8); BILIRUBIN,TOTAL 0.7 mg/dL (0.2-1.2); C-REACTIVE PROTEIN 0.54 mg/dL (0.00-0.50); CALCIUM 8.9 mg/dL (8.4-10.2); CREATININE, serum 1.27 mg/dL (0.72-1.25); POTASSIUM 3.3 mmol/L (3.5-4.5); TOTAL PROTEIN 6.1 gm/dL (6.2-8.1)
[2022-01-31 01:50] LABS: BAND 13 % (0-10); LYMPHOCYTE 15 % (20.0-51.0); NEUTROPHILS 71 % (42.0-75.2)
[2022-01-31 01:51] LABS: PLATELET ESTIMATE DECREASED (NORMAL)
[2022-01-31 04:05] VITALS: BP 155/86; PULSE 78; TEMP 98.1
[2022-01-31] MEDS ORDERED: MONODOX100 PO (04:33)
--- NOTE | 2022-01-31 05:32 | NUR ---
61 yo male admitted for further care and management of sepsis likely secondary to a skin/soft tissue source (possible R lower extremity and/or R hand cellulitis) that has failed outpatient antibiotic therapy. ht 182.9 cm wt 122.7 kg (adj wt 95.6 kg) SCr 1.27 with estimated CrCl ~60 ml/min half life 16.7 hours Plan: Patient may not follow population based kinetics secondary to body habitus (BMI 36.6 kg/m2). Will give an initial loading dose of vancomycin 2500 mg x1 (20.4 mg/kg); followed by a maintenance regimen of vancomycin 1500 mg q18h to target a goal trough of 10-15 mcg/ml. Will follow patient's renal function, micro data, and vancomycin levels as indicated to assess for any necessary changes to regimen. Thank you for this dosing consult.
--- NOTE | 2022-01-31 05:45 | NUR ---
PT ARRIVED TO THE MEDICAL FLOOR AT 0350HRS TO ROOM 314. PT A&O X 4; VSS; O2 RA. PT COMPLAINED OF LEG PAIN. PT GIVEN TYLENOL IN ED BEFORE BEING TRANSPORTED TO THE FLOOR. PT DENIED CHEST PAIN, PALPITATIONS, N,V,D OR DIZZINESS AT THIS TIME. PT VERY DROWSY. VERY HARD TO GET PT TO ANSWER QUESTIONS BECAUSE HE WOULD FALL BACK ASLEEP EVERY TWO OR THREE WORDS. PT ORIENTED TO ROOM AND HOSPITAL POLICY. ORIENTATION MAY NEED REENFORCEMENT BECAUSE PT KEPT FALLING ASLEEP WHILE I WAS TALKING TO HIM. PT EXPRESSED NO ADDITIONAL NEEDS AT THIS TIME. CALL LIGHT WITHIN REACH.
[2022-01-31 06:19] LABS: INR 1.1 (0.8-3.0); PROTHROMBIN TIME 12.2 SECONDS (9.7-12.8)
[2022-01-31 07:54] VITALS: BP 137/77; PULSE 85; TEMP 98.4
--- NOTE | 2022-01-31 08:30 | NUR ---
Assessment complete. A&Ox4. Denies nausea/shortness of breath. VS remain stable. Rating pain 8/10 on pain scale-described as throbbing in right lower extremity. Dilaudid given per dr order. Noted to have redness/warmth/swelling to upper calf. Several small blister noted-one draining serosanguineous fluid. Also noted to have redness/warmth to right inner thigh area. Elevated on pillows. NS@15omls/hr to left AC 20g-infusing without difficulty. Tele reporting SR. Plan of care discussed for this shift to include meds/pain control/calling for questions/concerns. Verbalizes understanding. Call light in reach. Will monitor.
--- NOTE | 2022-01-31 10:46 | NUR ---
JUDIE med with patient to complete intake. Patient states that he lives in [facility] alone. Next of kin is his daughter Melissa Cuenca [phone]. Patient provides that he does not currently utilize DME and is independent with ADL's. PCP is Dr. De Leon, pharmacy is [facility]. Patient provides that he has documentation stating his daughter is DPOA/Hc, but states he is also unsure if this is accurate. Patient plans to return to his home [place], and states he would like to talk to someone about filling out financial information before dcing home. SW will continue to follow [place] plan: home
[2022-01-31 11:57] VITALS: BP 155/86; PULSE 81; TEMP 98.5
--- NOTE | 2022-01-31 12:36 | NUR ---
Chaplain barclay and offered support with patient.
[2022-01-31 16:11] VITALS: BP 158/93; PULSE 74; TEMP 98.1
--- NOTE | 2022-01-31 18:10 | NUR ---
Patient had an uneventful day. VS remained stable. Received one dose of pain medications for right lower extremity pain. IV fluids continue to infuse to left AC IV-NS@150ml/hr. Denies current needs. Call light in reach. Will monitor.
[2022-01-31 20:18] VITALS: BP 139/73; PULSE 83; TEMP 98.4
[2022-01-31 23:29] VITALS: BP 152/87; PULSE 79; TEMP 98.3
[2022-02-01 03:31] VITALS: BP 139/87; PULSE 76; TEMP 97.7
--- NOTE | 2022-02-01 05:55 | NUR ---
ASSESSMENT COMPLETE FOR THIS SHIFT. PT RESTING IN BED TALKING ON HIS CELLPHONE. PT DENIED GENERAL PAIN, CHEST PAIN, PALPITATIONS, N,V,D, SOB OR DIZZINESS. PT COMPLAINED OF WHAT HE CALLED, DISCOMFORT TO HIS RT LEG AND HAND. PT HAS SCHEDULED TYLENOL. PT FELT THE TYLENOL WAS HELPFUL WITH HIS DISCOMFORT. PT SLEPT MOST OF THE NIGHT. PT EXPRESSED NO OTHER NEEDS AT THIS TIME. CALL LIGHT WITHIN REACH.
[2022-02-01 07:13] LABS: CALCIUM 8.1 mg/dL (8.4-10.2); CREATININE, serum 0.88 mg/dL (0.72-1.25); POTASSIUM 3.9 mmol/L (3.5-4.5)
[2022-02-01 07:23] LABS: MAGNESIUM 1.5 mg/dL (1.6-2.6)
[2022-02-01 07:54] VITALS: BP 145/89; PULSE 76; TEMP 98
--- NOTE | 2022-02-01 08:00 | NUR ---
Assessment complete. A&Ox4. Still very drowsy. VS remain stable. IV to left AC with NS@150ml/hr-infusing without difficulty. TELE reporting SR> Right hand noted to have an abrasion with redness/swelling/warmth. Right lower extremity with redness/warmth/swelling/drainage/multiple small sized open areas-from ankle to thigh. Plan of care discussed for this shift to include meds/pain control/calling for questions/concerns. Verbalizes understanding. Call light in reach. Will monitor.
[2022-02-01 11:41] VITALS: BP 145/79; PULSE 79; TEMP 98.3
[2022-02-01 16:00] VITALS: BP 140/72; PULSE 80; TEMP 98.2
--- NOTE | 2022-02-01 18:18 | NUR ---
Patient had an uneventful day-slept most of day. Received oxycodone x2 for right lower leg pain. INT to left AC flushes well. VS remained stable. TELE report SR. Denies current needs. Call light in reach. Will monitor.
[2022-02-01 19:18] VITALS: BP 147/83; PULSE 78; TEMP 98.1
[2022-02-01 23:26] VITALS: BP 151/88; PULSE 88; TEMP 99.3
[2022-02-02 03:21] VITALS: BP 151/80; PULSE 74; TEMP 98.4
--- NOTE | 2022-02-02 06:00 | NUR ---
ASSESSMENT COMPLETE FOR THIS SHIFT. PT RESTING IN BED NAPPING. PT COMPLAINED OF UPSET STOMACH. HOSPITALIST CALLED FOR ZOFRAN. ZOFRAN ORDERED AND GIVEN. ZOFRAN SEEMED EFFECTIVE. PT DENIED GENERAL PAIN, CHEST PAIN, PALPITATIONS, SOB, V,D OR DIZZINESS. PT SEEMED A BIT MORE LETHARGIC THIS SHIFT THAN LAST. PT EXPRESSED NO OTHER NEEDS AT THIS TIME. CALL LIGHT WITHIN REACH.
[2022-02-02 07:20] VITALS: BP 136/76; PULSE 74; TEMP 98.5
--- NOTE | 2022-02-02 08:30 | NUR ---
Pt doing okay. Right lower extremity is edemitus and red. pt reports that it is painful when moving. Keeping it elevated on pillows. Pt also has a wound on his right hand. He stated that he got it about 4 days prior to his leg swelling. He reported that his doctor used tweezers to pull out splinters, as a piece of wound came down on his hand between his fingers. He stated that when he had this done, there was pus that came out when the dr opened the wound. Right now there is some swelling noted and then small areas of dried blood.
[2022-02-02 11:39] VITALS: BP 144/76; PULSE 75; TEMP 98; TEMP 98.4
--- NOTE | 2022-02-02 12:07 | NUR ---
Pt doing okay now, did give him some tylenol scheduled. Pt did have complaints of pain in his right leg with movement. Right leg is red and swollen. Pt feels the swelling is getting worse. Leg elevated up on pillows. Pt also has a few areas on his right leg that are scabbed over. Pt stated that he gets them from time to time. Pts was here for a bit this morning. No questions from her.
--- NOTE | 2022-02-02 15:00 | NUR ---
Dr Mejia in to see pt, new orders wrote. Cultured wound on right hand per order and taken to lab. Pt getting ready to take a shower at this time.
[2022-02-02 16:18] VITALS: BP 140/75; PULSE 77; TEMP 98.6
--- NOTE | 2022-02-02 16:35 | NUR ---
CT ordered for pt. Notified them that pt was out of the shower and could go at any time
--- NOTE | 2022-02-02 20:30 | NUR ---
Pt. sitting up in bed. Pt. is A&OX3, assessment complete. INT to lt. ac noted, iv abx infusing. Pt. reports discomofrt to lt. iv site. IV flushes with dificulty. IV was barely in the site. Site removed. New site started to rt. forearm, 22g, 2 attempts. Pt. tolerated well. Pt. reports pain to RLE at a 4 on pain scale, giving Tylenol. Pt. denies further needs, call light within reach.
[2022-02-02 20:35] VITALS: BP 112/69; PULSE 71; TEMP 97.8
[2022-02-03 00:06] VITALS: BP 147/76; PULSE 78; TEMP 98.2
[2022-02-03 04:29] VITALS: BP 128/66; PULSE 74; TEMP 97.9
[2022-02-03 07:40] VITALS: BP 147/83; PULSE 85; TEMP 98.2
[2022-02-03 10:36] LABS: BASO % 0.3 % (0.0-2.0); EOS # 0.2 K/mm3 (0.0-0.7); EOS % 2.3 % (0.0-4.0); GRAN # 5.1 K/mm3 (1.4-6.5); GRAN % 67.8 % (42.2-75.2); HEMATOCRIT 39.1 % (42.0-52.0); HEMOGLOBIN 13.2 g/dl (13.5-18.0); LYMPH # 1.5 K/mm3 (1.2-3.4); LYMPH % 19.5 % (20.0-51.0); MEAN CELL VOLUME 88 fl (80.0-100.0); MEAN CORPUSCULAR HEMOGLOBIN 30 pg (27-31); MEAN CORPUSCULAR HGB CONC 34 g/dl (33.0-37.0); MONO # 0.7 K/mm3 (0.1-0.6); PLATELET COUNT 92 K/mm3 (130-400); RED BLOOD COUNT 4.43 M/mm3 (4.20-5.60); REDCELL DISTRIBUTION WIDTH-CV 12.9 % (11.5-14.5)
[2022-02-03 10:54] LABS: C-REACTIVE PROTEIN 0.08 mg/dL (0.00-0.50); CALCIUM 8.5 mg/dL (8.4-10.2); CREATININE, serum 1.09 mg/dL (0.72-1.25); POTASSIUM 3.8 mmol/L (3.5-4.5)
[2022-02-03 12:23] VITALS: BP 132/66; PULSE 72; TEMP 97.3
--- NOTE | 2022-02-03 12:30 | NUR ---
Queenie: No relgious preference Situation: [employer] stopped by room on rounds Background: Follow up visit Assessment: Pt has no needs and apprecaited the visit Recommendation: [employer] will follow up as needed
[2022-02-03 17:13] VITALS: BP 147/82; PULSE 72; TEMP 97.6
[2022-02-03 20:12] VITALS: BP 158/77; PULSE 75; TEMP 97.6
--- NOTE | 2022-02-03 23:18 | NUR ---
Patient assessed around 2054. Alert and oriented. Reported pain to RLE. Given PRN Roxicodone. Redness/warmth/swelling/drainage continues to RLE. Continues on IV ABX per orders. Voices no further questions, needs, or concerns at this time. In bed with call light within reach. Bed alarm on.
[2022-02-04] VITALS (7 sets, daily range): BP systolic 137–160; BP diastolic 69–92; PULSE 69–84; TEMP 97.9–98.6
--- NOTE | 2022-02-04 05:51 | NUR ---
Given scheduled Acetaminophen per orders. No further PRN medicatios needed. Continues on IV ABX per orders. Voices no questions, needs, or concerns at this time. In bed with call light within reach.
[2022-02-04 06:46] LABS: BASO % 0.5 % (0.0-2.0); EOS # 0.2 K/mm3 (0.0-0.7); EOS % 2.9 % (0.0-4.0); GRAN # 3.8 K/mm3 (1.4-6.5); GRAN % 58.5 % (42.2-75.2); HEMATOCRIT 40.1 % (42.0-52.0); HEMOGLOBIN 13.8 g/dl (13.5-18.0); LYMPH # 1.7 K/mm3 (1.2-3.4); LYMPH % 26.1 % (20.0-51.0); MEAN CELL VOLUME 88 fl (80.0-100.0); MEAN CORPUSCULAR HEMOGLOBIN 30 pg (27-31); MEAN CORPUSCULAR HGB CONC 34 g/dl (33.0-37.0); MEAN PLATELET VOLUME 8.8 fl (7.4-10.4); MONO # 0.7 K/mm3 (0.1-0.6); MONO % 11.1 % (1.7-9.3); PLATELET COUNT 92 K/mm3 (130-400); RED BLOOD COUNT 4.58 M/mm3 (4.20-5.60); REDCELL DISTRIBUTION WIDTH-CV 12.8 % (11.5-14.5)
[2022-02-04 06:57] LABS: ALBUMIN 3.6 gm/dL (3.4-4.8); CALCIUM 8.8 mg/dL (8.4-10.2); CREATININE, serum 0.99 mg/dL (0.72-1.25); MAGNESIUM 1.9 mg/dL (1.6-2.6); PHOSPHOROUS 3.2 mg/dL (2.3-4.7); POTASSIUM 3.9 mmol/L (3.5-4.5)
--- NOTE | 2022-02-04 08:36 | NUR ---
PT RESTING IN BED. MORNING MEDICATIONS GIVEN. SHIFT ASSESSMENT COMPLETED. PT RLE STILL APPEARS VERY RED AND SWOLLEN, PT STATES PAIN IS A 5/10 AT REST, STILL HAS SOME DIFFICULTY WITH WEIGHT BEARING. EXTREMITY HAS SOME OPEN BLISTERS AND IS WEEPING. WILL CONTINUE TO MONITOR.
--- NOTE | 2022-02-04 23:10 | NUR ---
Patient assessed around 1909. Given scheduled Acetaminophen for pain which was not effective, and given PRN Roxicodone as requested. Redness, swelling, and drainage continues to RLE. Continues on IV ABX per orders. In bed with call light within reach.
[2022-02-05 04:09] VITALS: BP 155/95; PULSE 79; TEMP 97.3
--- NOTE | 2022-02-05 06:14 | NUR ---
Continues on IV ABX per orders. Recieved PRN Roxicodone during the night as requested for pain to RLE. In bed with call light within reach. Bed alarm on.
[2022-02-05 07:05] LABS: ALBUMIN 3.8 gm/dL (3.4-4.8); CALCIUM 9.1 mg/dL (8.4-10.2); CREATININE, serum 0.97 mg/dL (0.72-1.25); PHOSPHOROUS 3.6 mg/dL (2.3-4.7)
[2022-02-05 07:08] LABS: BASO % 0.3 % (0.0-2.0); EOS # 0.2 K/mm3 (0.0-0.7); EOS % 3.5 % (0.0-4.0); GRAN % 51.6 % (42.2-75.2); HEMATOCRIT 41.1 % (42.0-52.0); HEMOGLOBIN 14.3 g/dl (13.5-18.0); LYMPH # 1.8 K/mm3 (1.2-3.4); LYMPH % 30.6 % (20.0-51.0); MEAN CELL VOLUME 88 fl (80.0-100.0); MEAN CORPUSCULAR HEMOGLOBIN 31 pg (27-31); MEAN CORPUSCULAR HGB CONC 35 g/dl (33.0-37.0); MEAN PLATELET VOLUME 9.6 fl (7.4-10.4); MONO # 0.7 K/mm3 (0.1-0.6); MONO % 12.6 % (1.7-9.3); PLATELET COUNT 93 K/mm3 (130-400); RED BLOOD COUNT 4.69 M/mm3 (4.20-5.60)
[2022-02-05 07:44] VITALS: BP 136/79; PULSE 70; TEMP 97.6
--- NOTE | 2022-02-05 07:49 | NUR ---
PT RESTING IN BED. MORNING MEDICATIONS GIVEN. SHIFT ASSESSMENT COMPLETED. PT DENIES ANY PAIN AT THIS TIME, STATES THE PRN MEDICATION HAS HELPED A LOT. RLE APPEARS RED, 3+ PITTING EDEMA, SCABS, OPEN DRAINING BLISTERS. ENCOURAGE PT TO KEEP EXTREMITY ELEVATED WHEN IN BED. UPDATED PT ON POC. DENIES ANY OTHER NEEDS OR CONCERNS AT THIS TIME. WILL CONTINUE TO MONITOR.
[2022-02-05] MEDS ORDERED: LEVAQUIN 750MG750 M1 PO (10:29)
[2022-02-05] MEDS ORDERED: ROXICODONE 55 MG/TAB PO (10:30)
[2022-02-05] MEDS ORDERED: TYLENOL 500MG500 MG PO (10:30)
[2022-02-05 11:06] VITALS: BP 151/79; PULSE 71; TEMP 97.5
--- NOTE | 2022-02-05 11:47 | NUR ---
insulation worker apprentice met with patient and patient's at bedside to discuss going home with HH PT, nursing and wound care. Patient is agreeable to this and due to his payor source, a referral was sent to [facility]. [facility] accept MELIZA mchugh on a "case by case" review but will not be able to admit him until this weekend. SW collaborated with physician who is ok with this. Notified the patient. Patient reports that he has a walker at home but doesn't know where it is at. Informed him that i will order him a new walker. Patient gets his oxygen from [facility] and would like the order sent there. Patient asks if he is able to go home with strong pain medication then what he is getting. Encouraged the patient to reach out to PCP if what he gets sent home with does not curb his pain. notified. Discharge plan: Home with HH
--- NOTE | 2022-02-05 11:58 | NUR ---
IV D/C. TELE D/C. DISCHARGE INSTRUCTIONS GIVEN, AT BEDSIDE, ALL QUESTIONS ANSWERED. WILL ESCORT DOWN WITH PERSONAL BELONGINGS. WILL D/C FROM SYSTEM.
== END 2022-02-05 12:14 | disposition home or self-care (01) | DRG 872 ==
LOC: COL.ER 00:10 → MEDICAL 02:15
PROVIDERS: Internal Medicine; Nurse Practitioner; Nurse Practitioner Family; Physician Assistant; ADMIT Internal Medicine
DX: A41.9 Sepsis, unspecified organism (principal); L03.115 Cellulitis of right lower limb; L03.113 Cellulitis of right upper limb; N17.9 Acute kidney failure, unspecified; I10 Essential (primary) hypertension; F17.210 Nicotine dependence, cigarettes, uncomplicated; D69.6 Thrombocytopenia, unspecified; F10.10 Alcohol abuse, uncomplicated; F12.10 Cannabis abuse, uncomplicated; S61.431A Puncture wound without foreign body of right hand, initial encounter; F15.10 Other stimulant abuse, uncomplicated; Z20.822 Contact with and (suspected) exposure to COVID-19; D64.9 Anemia, unspecified; E87.6 Hypokalemia; R73.9 Hyperglycemia, unspecified; B95.7 Other staphylococcus as the cause of diseases classified elsewhere; B96.89 Other specified bacterial agents as the cause of diseases classified elsewhere; Z72.89 Other problems related to lifestyle; Z86.16 Personal history of COVID-19; Z87.01 Personal history of pneumonia (recurrent); Z88.0 Allergy status to penicillin; Z91.041 Radiographic dye allergy status
CPT/HCPCS: 99232-AI; 99233-AI; G0378; J0692; J0696; J0744; J1170; J2405; J2543; J3370; J7030; J7040; J7050

== ENCOUNTER → 2022-04-09 | Outpatient (CLI) | payer MEDICAID ==
[~2022-04-09] MED LIST changes: +LEVAQUIN 750MG750 M1 PO; +MONODOX100 PO; +ROXICODONE 55 MG/TAB PO; +TYLENOL 500MG500 MG PO
== END ==
LOC: COL.RAD 07:30
DX: R16.1 Splenomegaly, not elsewhere classified (principal)

== ENCOUNTER 2024-05-30 23:23 | Emergency (ER) | payer SELFPAY ==
[~2024-05-30] VITALS: Ht 172.7 cm; Wt 81.8 kg
[~2024-05-30 23:23] MED LIST changes: +DOXYCYCLINE 10100 MG PO; +ZANTAC-360 (FAM20 MG PO
[2024-05-30 23:43] VITALS: TEMP 97.3
[2024-05-31] MEDS ORDERED: PREDNISONE20 MG PO (00:21)
[2024-05-31] MEDS ORDERED: Gabapentin 300 MG CAP PO ONE (00:30)
[2024-05-31] MEDS ORDERED: predniSONE 20 MG TAB PO ONE (00:30)
[2024-05-31 00:45] VITALS: BP 147/83; PULSE 73
== END 2024-05-31 00:45 | disposition home or self-care (01) ==
LOC: COL.ER 23:23
DX: M79.671 Pain in right foot (principal); M79.672 Pain in left foot
CPT/HCPCS: J7512